=== PATIENT | female | born 1980 | race Caucasian/White ===

== ENCOUNTER → 2020-03-12 | Outpatient (CLI) | payer OTHER ==
[~2020-03-12] MED LIST: FERR325T18 PO; IBUP-1773 PO; PNV91TAB3 PO
--- NOTE | 2020-03-12 16:57 | Diagnostic Imaging Report ---
INDICATION: Assessment during normal . TECHNIQUE: Multiple real-time grayscale images were obtained over the gravid uterus. COMPARISON: None. FINDINGS: Single viable intrauterine is currently in a variable presentation. The fetus was initially in a breech presentation but moved into a cephalic presentation during imaging. There is a normal amount of amniotic fluid, index 14.25 cm. There is what appears to be a septation within the amnion. Placenta is posterior and without previa. Visualized anatomical structures including kidneys, bladder, stomach, intracranial structures, four-chamber heart, three-vessel cord and insertion site, as well as spine are unremarkable. Biometrical measurements are as follows: Biparietal 5.58 cm, age 23 weeks 1 days. Head circumference 20.36 cm, age 22 weeks 4 days. Abdominal circumference 16.28 cm, age 21 weeks 3 days. Femur length 3.55 cm, age 21 weeks 2 days. Sonographic estimate age: 22 weeks 1 days. Sonographic estimated date of delivery: 07/15/2020. Estimated Weight: 427 gm (+/- 62 gm). LMP percentile: 32%. heart rate: 144 beats per minute. number: 1 of 1. IMPRESSION: 1. Single viable intrauterine , currently in a variable presentation. There was noted change in orientation during the examination. 2. Sonographic estimated age at 22 weeks 1 day for an estimated date of delivery of July 15, 2020. 3. There is noted presence of a septation within the amnion. Dictated by: Dictated on workstation # [id number]
== END ==
LOC: RAD 14:38
PROVIDERS: ATTEND Obstetrics & Gynecology
DX: Z34.92 Encounter for supervision of normal pregnancy, unspecified, second trimester (principal); Z3A.22 22 weeks gestation of pregnancy
CPT/HCPCS: 76805

== ENCOUNTER 2020-05-06 20:42 | Emergency (ER) | payer OTHER ==
[~2020-05-06] VITALS: Ht 152 cm; Wt 64.0 kg
[2020-05-06] MEDS ORDERED: NS IV 1000 ML 1,000 ML ONE (20:51)
[2020-05-06] MEDS ORDERED: NS IV 1000 ML 1,000 ML IV SCH ×2 (20:53→22:12)
--- NOTE | 2020-05-06 21:08 | NUR ---
Pt. here with c/o sudden onset of sore throat, feeling of heart burn, and pain in her chest that settled into her right upper back. Pt states that she has had this pain previously when she had pneumonia. Pt was seen in her OB office today and received a flu shot. Pt is 29 wks with her 6th . She is 6, para 4. Pt has had an uneventful thus far. Pt noted to have rapid HR sinus in nature. IV and labs started. ECG obtained. Swabs obtained and sent.
[2020-05-06 21:22] LABS: BASOPHILS % (AUTO) 0 % (0-10); EOSINOPHILS # (AUTO) 0.1 10^3/uL (0.0-0.3); EOSINOPHILS % (AUTO) 0 % (0-10); HEMATOCRIT 32 % (35-52); HEMOGLOBIN 10.6 g/dL (11.5-16.0); LYMPHOCYTES # (AUTO) 1.2 10^3/uL (1.0-4.0); LYMPHOCYTES % (AUTO) 9 % (12-44); MEAN CORPUSCULAR HEMOGLOBIN 29 pg (25-34); MEAN CORPUSCULAR HGB CONC 34 g/dL (32-36); MEAN CORPUSCULAR VOLUME 87 fL (80-99); MEAN PLATELET VOLUME 9.5 fL (9.0-12.2); MONOCYTES # (AUTO) 0.3 10^3/uL (0.0-1.0); MONOCYTES % (AUTO) 2 % (0-12); NEUTROPHILS # (AUTO) 11.9 10^3/uL (1.8-7.8); NEUTROPHILS % (AUTO) 88 % (42-75); PLATELET COUNT 246 10^3/uL (130-400); WHITE BLOOD COUNT 13.5 10^3/uL (4.3-11.0)
--- NOTE | 2020-05-06 21:26 | ED Respiratory ---
General Chief Complaint: Respiratory Problems Stated Complaint: SOA/SORE THROAT/CHEST TIGHTNESS Nursing Triage Note: PT REPORTS THAT IT STARTED A SORE THROAT AND THEN HAD ONSET OF HEARTBURN AND THEN IT SETTLED IN HER CHEST WITH RADIATION INTO HER BACK AND ONSET OF SHOB. Source: patient History of Present Illness Date Seen by Provider: May 06, 2020 Time Seen by Provider: 20:46 Initial Comments PT ARRIVES VIA POV FROM HOME STATES SHE BEGAN FEELING ILL AT 1730 THIS EVENING C/O SORE THROAT, THEN MOVED INTO CHEST--THOUGHT IT WAS HEARTBURN THEN BEGAN HAVING PAIN ALL ACROSS CHEST AND INTO HER RIGHT FLANK AND POSTERIOR CHEST AREA C/O BEING SHORT OF BREATH C/O NON-PRODUCTIVE COUGH C/O SUBJECTIVE FEVER NO LEG SWELLING, BUT HAD A CRAMP IN LEFT CALF FOR MOST OF THE DAY ON Sunday05/02/20 BUT NONE SINCE THEN NO NAUSEA/VOMITING/DIARRHEA OR ABDOMINAL PAIN NO LOSS OF TASTE OR SMELL NO URINARY SYMPTOMS PT HAS BEEN EATING AND DRINKING NORMALLY NO HEADACHE OR BODY ACHES PT STATES SHE HAS HAD PNEUMONIA TWICE IN THE PAST, AND THIS FEELS THE SAME--LAST TIME WAS 8 YEARS AGO OTHERWISE NO CHRONIC RESPIRATORY ILLNESS NO MAJOR MEDICAL PROBLEMS OR OTHER CHRONIC ILLNESSES PT HAS NEVER SMOKED AND NO SECOND HAND SMOKE PT IS 29 WEEKS WITH EDC 07/18/20 NO COMPLICATIONS WITH THIS --PT IS G6 04 AB 1--WITH X 1 AND MISCARRIAGE WITH D%C X 1 PT HAD ROUTINE APPOINTMENT WITH DR. 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 PCP: GURPREET SIMEON DIRECTOR CREDIT RISK: DR. WHITAKER Allergies and Home Medications Allergies Coded Allergies: cefaclor (Verified Allergy, Unknown, 03/01/16) Home Medications Amoxicillin/Potassium Clav 1 Each Tablet, 1 EACH PO BID Prescribed by: JESSICA GOODWIN on 05/06/202225 Azithromycin 500 Mg Tablet, 500 MG PO DAILY Prescribed by: JESSICA GOODWIN on 05/06/202225 Ferrous Sulfate 325 Mg Tablet, 325 MG PO DAILY Prescribed by: ELO WHITAKER on 07/13/191848 Ibuprofen 600 Mg Tablet, 600 MG PO Q6H Prescribed by: ELO WHITAKER on 07/13/191848 L. Acidophilus/Pectin, Esmeralda 1 Each Capsule, 2 EACH PO QID Prescribed by: JESSICA GOODWIN on 05/06/202225 Pnv95/Ferrous Fumarate/FA 1 Each Tablet, 1 EACH PO DAILY, (Reported) Patient Home Medication List Home Medication List Reviewed: Yes Review of Systems Review of Systems Constitutional: see HPI, fever, malaise EENTM: throat pain; No nose congestion Respiratory: see HPI, cough, short of breath Cardiovascular: see HPI, chest pain; No edema, No palpitations, No syncope, No vascular heart diseas Gastrointestinal: no symptoms reported; No abdominal pain, No diarrhea, No loss of appetite, No nausea, No vomiting Genitourinary: no symptoms reported Expected Date of Delivery: Jul 18, 2020 Musculoskeletal: see HPI, back pain Skin: no symptoms reported Psychiatric/Neurological: No Symptoms Reported; Denies Headache Hematologic/Lymphatic: No Symptoms Reported Immunological/Allergic: no symptoms reported Past Ocwxdew-Khnycr-Ixuxaz Hx Past Med/Social Hx: Reviewed and Corrections made Patient Social History Alcohol Use: Denies Use Recreational Drug Use: No Smoking Status: Never a Smoker Recent Foreign Travel: No Contact w/Someone Who Travel: No Recent Infectious Disease Expo: No Recent Hopitalizations: No Seasonal Allergies Seasonal Allergies: No Past Medical History Surgeries: Yes (CLEFT LIP AND PALATE REPAIR X 12 SURGERIES; D&C ; X 1) Section Respiratory: Yes Pneumonia Currently Using CPAP: No Currently Using BIPAP: No 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) Valvular Heart Disease Neurological: No : Yes Expected Date of Delivery: Jul 18, 2020 Hx : 6 Hx Para: 4 Hx Total # of Abortions (Sp): 1 Reproductive Disorders: No Female Reproductive Disorders: Denies Genitourinary: No Gastrointestinal: No Musculoskeletal: No Endocrine: No HEENT: Yes (CLEFT LIP AND PALATE REPAIR X 12 SURGERIES) Cancer: No Psychosocial: No Integumentary: No Blood Disorders: No Physical Exam Vital Signs - First Documented 05/06/20 05/06/20 20:51 21:43 Temp 37.4 Pulse 141 Resp 32 B/P (MAP) 141/74 (96) Pulse Ox 96 O2 Delivery Room Air O2 Flow Rate 98.00 Capillary Refill : Less Than 3 Seconds Height: 5'2.00" Weight: 133lbs. 0.0oz. 60.183352sb; 27.00 BMI Method: General Appearance: WD/WN, other (LOOKS MILDLY ILL, MILDLY DYSPNEIC, BUT ABLE TO TALK IN FULL SENTENCES) HEENT: PERRL/EOMI, normal ENT inspection, TMs normal, pharynx normal, other (POST SURGICAL CHANGES OF CLEFT LIP/PALATE REPAIR) Neck: non-tender, full range of motion, supple, normal inspection Respiratory: normal breath sounds, no accessory muscle use, other (MILDLY DYSPNEIC AND TACHYPNEIC) Cardiovascular: no edema, no gallop, no JVD, no murmur, tachycardia (140'S) Gastrointestinal: normal bowel sounds, non tender, other (GRAVID UTERUS C/W 29 WEEK GESTATION) Extremities: normal range of motion, non-tender, normal inspection, no pedal edema, no calf tenderness, normal capillary refill Neurologic/Psychiatric: circulation tender II-XII nml as tested, no motor/sensory deficits, alert, normal mood/affect, oriented x 3 Skin: normal color, warm/dry Focused Exam Lactate Level 05/06/20 21:05: Lactic Acid Level 1.36 Lactic Acid Level Laboratory Tests Test 05/06/20 21:05 Lactic Acid Level 1.36 MMOL/L (0.50-2.00) Progress/Results/Core Measures Suspected Sepsis Recent Fever Within 48 Hours: No Infection Criteria Present: None New/Unexplained Altered Menta: No Sepsis Screen: No Definite Risk SIRS Temperature: Pulse: 141 Respiratory Rate: 32 Laboratory Tests 05/06/20 21:05: White Blood Count 13.5H Blood Pressure 141 /74 Mean: 96 05/06/20 21:05: Lactic Acid Level 1.36 Laboratory Tests 05/06/20 21:05: Creatinine 0.59L, INR Comment 1.0, Platelet Count 246, Total Bilirubin 0.2 Results/Orders Lab Results Laboratory Tests Test 05/06/20 21:05 05/06/20 21:10 05/06/20 21:20 Range/Units White Blood Count 13.5 H 4.3-11.0 10^3/uL Red Blood Count 3.61 L 3.80-5.11 10^6/uL Hemoglobin 10.6 L 11.5-16.0 g/dL Hematocrit 32 L 35-52 % Mean Corpuscular Volume 87 80-99 fL Mean Corpuscular Hemoglobin 29 25-34 pg Mean Corpuscular Hemoglobin Concent 34 32-36 g/dL Red Cell Distribution Width 13.5 10.0-14.5 % Platelet Count 246 130-400 10^3/uL Mean Platelet Volume 9.5 9.0-12.2 fL Immature Granulocyte % (Auto) 0 % Neutrophils (%) (Auto) 88 H 42-75 % Lymphocytes (%) (Auto) 9 L 12-44 % Monocytes (%) (Auto) 2 0-12 % Eosinophils (%) (Auto) 0 0-10 % Basophils (%) (Auto) 0 0-10 % Neutrophils # (Auto) 11.9 H 1.8-7.8 10^3/uL Lymphocytes # (Auto) 1.2 1.0-4.0 10^3/uL Monocytes # (Auto) 0.3 0.0-1.0 10^3/uL Eosinophils # (Auto) 0.1 0.0-0.3 10^3/uL Basophils # (Auto) 0.0 0.0-0.1 10^3/uL Immature Granulocyte # (Auto) 0.1 0.0-0.1 10^3/uL Neutrophils % (Manual) 91 % Lymphocytes % (Manual) 5 % Monocytes % (Manual) 1 % Eosinophils % (Manual) 1 % Basophils % (Manual) 0 % Band Neutrophils 2 % Anisocytosis SLIGHT Erythrocyte Sedimentation Rate 30 H 0-20 MM/HR Prothrombin Time 13.4 12.2-14.7 SEC INR Comment 1.0 0.8-1.4 Activated Partial Thromboplast Time 24 24-35 SEC D-Dimer 3.58 H 0.00-0.49 UG/ML Sodium Level 137 135-145 MMOL/L Potassium Level 2.9 L 3.6-5.0 MMOL/L Chloride Level 106 98-107 MMOL/L Carbon Dioxide Level 20 L 21-32 MMOL/L Anion Gap 11 5-14 MMOL/L Blood Urea Nitrogen 5 L 7-18 MG/DL Creatinine 0.59 L 0.60-1.30 MG/DL Estimat Glomerular Filtration Rate > 60 BUN/Creatinine Ratio 8 Glucose Level 109 H 70-105 MG/DL Lactic Acid Level 1.36 0.50-2.00 MMOL/L Calcium Level 8.6 8.5-10.1 MG/DL Corrected Calcium 9.2 8.5-10.1 MG/DL Magnesium Level 1.5 L 1.6-2.4 MG/DL Total Bilirubin 0.2 0.1-1.0 MG/DL Aspartate Amino Transf (AST/SGOT) 14 5-34 U/L Alanine Aminotransferase (ALT/SGPT) 17 0-55 U/L Alkaline Phosphatase 73 40-136 U/L Lactate Dehydrogenase 177 125-220 U/L Total Creatine Kinase 55 29-168 U/L Creatine Kinase MB 1.0 <6.6 NG/ML Myoglobin 13.8 10.0-92.0 NG/ML Troponin I < 0.028 <0.028 NG/ML C-Reactive Protein High Sensitivity 0.82 H 0.00-0.50 MG/DL B-Type Natriuretic Peptide 11.4 <100.0 PG/ML Total Protein 6.6 6.4-8.2 GM/DL Albumin 3.2 3.2-4.5 GM/DL Procalcitonin 0.04 <0.10 NG/ML Coronavirus 2019 (ADRY) Negative Negative Monoscreen NEGATIVE NEGATIVE Group A Streptococcus Screen NEGATIVE NEGATIVE Urine Color YELLOW Urine Clarity CLOUDY H Urine pH 7.0 5-9 Urine Specific Brandon 1.015 L 1.016-1.022 Urine Protein NEGATIVE NEGATIVE Urine Glucose (UA) TRACE H NEGATIVE Urine Ketones NEGATIVE NEGATIVE Urine Nitrite NEGATIVE NEGATIVE Urine Bilirubin NEGATIVE NEGATIVE Urine Urobilinogen 0.2 < = 1.0 MG/DL Urine Leukocyte Esterase 2+ H NEGATIVE Urine RBC (Auto) NEGATIVE NEGATIVE Urine RBC NONE /HPF Urine WBC 25-50 H /HPF Urine Squamous Epithelial Cells 25-50 H /HPF Urine Crystals PRESENT H /LPF Urine Amorphous Sediment FEW MIGDALIA PHOSPHATE H /LPF Urine Bacteria MODERATE H /HPF Urine Casts NONE /LPF Urine Mucus SMALL H /LPF Urine Culture Indicated YES Micro Results Microbiology 05/06/20 Influenza Types A,B Antigen (JIMMY) - Final, Complete My Orders Orders - JESSICA GOODWIN DO Ed Iv/Invasive Line Start (05/06/20 20:47) Ekg Tracing (05/06/20 20:47) Monitor-Rhythm Ecg Trace Only (05/06/20 20:47) BNP (05/06/20 20:47) Cbc With Automated Diff (05/06/20 20:47) Comprehensive Metabolic Panel (05/06/20 20:47) Lactic Acid Analyzer (05/06/20 20:47) Magnesium (05/06/20 20:47) Procalcitonin (Pct) (05/06/20 20:47) Protime With Inr (05/06/20 20:47) Partial Thromboplastin Time (05/06/20 20:47) Ua Culture If Indicated (05/06/20 20:47) Blood Culture (05/06/20 20:47) Influenza A And B Antigens (05/06/20 20:47) Troponin I (05/06/20 20:47) Chest 1 View, Ap/Pa Only (05/06/20 20:47) Hs C Reactive Protein (05/06/20 20:47) Erythrocyte Sedimentation Rate (05/06/20 20:47) LDH (05/06/20 20:47) Covid 19 Inhouse Test (05/06/20 20:47) Monotest (05/06/20 20:50) Rapid Strep A Screen (05/06/20 20:50) Ed Iv/Invasive Line Start (05/06/20 20:53) Ns Iv 1000 Ml (Sodium Chloride 0.9%) (05/06/20 20:53) Heart Tones (05/06/20 20:53) Ns Iv 1000 Ml (Sodium Chloride 0.9%) (05/06/20 20:51) Creatine Kinase (05/06/20 20:57) Creatine Kinase Mb (05/06/20 20:57) Fibrin Degradation Products (05/06/20 20:57) Myoglobin Serum (05/06/20 20:57) Acetaminophen Tablet (Tylenol Tablet) (05/06/20 21:30) Manual Differential (05/06/20 21:05) Urine Culture (05/06/20 21:20) Coronavirus Sars-Cov-2 So 2018 (05/06/20 21:47) Azithromycin Tablet (Zithromax Tablet) (05/06/20 22:15) Amoxicillin/Clavulanate Tablet (Augmenti (05/06/20 22:15) Magnesium Oxide Tablet (Mag Ox Tablet) (05/06/20 22:15) Potassium Chloride (Tablet) (Klor Con Ta (05/06/20 22:15) Ed Iv/Invasive Line Start (05/06/20 22:12) Ns Iv 1000 Ml (Sodium Chloride 0.9%) (05/06/20 22:12) Medications Given in ED Current Medications Medications Dose Ordered Sig/Moon Route Start Time Stop Time Status Last Admin Dose Admin Acetaminophen 1,000 mg ONCE ONCE PO 05/06/20 21:30 05/06/20 21:31 DC 05/06/20 21:25 1,000 MG Azithromycin 500 mg ONCE ONCE PO 05/06/20 22:15 05/06/20 22:16 DC 05/06/20 22:44 500 MG Magnesium Oxide 1,200 mg ONCE ONCE PO 05/06/20 22:15 05/06/20 22:16 DC 05/06/20 22:43 1,200 MG Potassium Chloride 40 meq ONCE ONCE PO 05/06/20 22:15 05/06/20 22:16 DC 05/06/20 22:43 40 MEQ Vital Signs/I&O 05/06/20 05/06/20 05/06/20 05/06/20 20:51 21:43 21:44 23:28 Temp 37.4 37.4 Pulse 141 128 128 119 Resp 32 32 B/P (MAP) 141/74 (96) 125/66 125/66 116/75 Pulse Ox 96 98 98 99 O2 Delivery Room Air Room Air Room Air Room Air O2 Flow Rate 98.00 98.00 05/06/20 23:38 Pulse 118 Resp 18 B/P (MAP) 116/72 Pulse Ox 99 O2 Delivery Room Air 05/07/20 00:00 Intake Total 2000 ml Balance 2000 ml Capillary Refill : Less Than 3 Seconds Blood Pressure Mean: 96 Progress Note : Progress Note FHR 147 O2 SATS IN UPPER 90'S ON ROOM AIR BP NORMAL. ' GIVEN TYLENOL AND IV FLUIDS TEMP DOWN, HEART RATE DOWN UNEVENTFUL ER STAY ECG Initial ECG Impression Date: May 06, 2020 Initial ECG Impression Time: 20:58 Initial ECG Rate: 136 Initial ECG Rhythm: S.Tach Initial ECG Comparisson: No Previous ECG Available Diagnostic Imaging Comments CXR---PER RADIOLOGIST REPORT AT 1 FINDINGS: The lung volumes are normal. Patchy opacities are seen in the bilateral mid and lower lungs.. No large pleural effusion or pneumothorax is seen. The cardiomediastinal silhouette is normal in size and contour. No acute osseous abnormality is seen. IMPRESSION: Patchy bibasilar opacities, which may represent atelectasis, edema or infection. Alternatively, overlapping soft tissues are a possibility, particularly given the patient history of 29 weeks . Lateral radiographs may be of use to further evaluate. Reviewed: Reviewed by Me Departure Communication (Admissions) 2201--DISCUSSED WITH DR. WHITAKER, WILL TREAT WITH ANTIBIOTICS AT THIS TIME. Impression Primary Impression: Person under investigation for COVID-19 Additional Impressions: POSSIBLE PNEMONIA 29 weeks gestation of UTI (urinary tract infection) during Hypokalemia Hypomagnesemia Disposition: HOME, SELF-CARE Condition: Stable Departure-Patient Inst. Referrals: ELO WHITAKER,LOCAL PHYSICIAN (PCP) Primary Care Physician Patient Instructions: Coronavirus Disease 2019 (COVID-19) (DC), Hypokalemia (DC), Low Magnesium Level (DC), Pneumonia, Adult (DC), Urinary Tract Infections in Add. Discharge Instructions: LOTS OF FLUIDS TYLENOL NEEDED FOR PAIN OR FEVER QUARANTINE FOR ALL HOUSEHOLD MEMBERS AND CLOSE CONTACTS UNTIL CLEARED BY OR HEALTH DEPT RETURN TO ER IF SYMPTOMS WORSEN All discharge instructions reviewed with patient and/or family. Voiced understanding. Scripts L. Acidophilus/Pectin, Esmeralda (Acidophilus Capsule) 1 Each Capsule 2 EACH PO QID, #40 CAP Prov: JESSICA GOODWIN DO 05/06/20 Azithromycin (Zithromax) 500 Mg Tablet 500 MG PO DAILY for 5 Days, #5 TAB Prov: JESSICA GOODWIN DO 05/06/20 Amoxicillin/Potassium Clav (Augmentin 875-125 Tablet) 1 Each Tablet 1 EACH PO BID for 10 Days, #20 TAB Prov: JESSICA GOODWIN DO 05/06/20 JESSICA GOODWIN DO May 06, 2020 21:26
[2020-05-06 21:30] LABS: BILIRUBIN,URINE NEGATIVE (NEGATIVE); COLOR,URINE YELLOW; GLUCOSE, URINE (UA) TRACE (NEGATIVE); KETONES,URINE NEGATIVE (NEGATIVE); LEUKOCYTE ESTERASE ,URINE 2+ (NEGATIVE); NITRITE,URINE NEGATIVE (NEGATIVE); PROTEIN,URINE NEGATIVE (NEGATIVE)
[2020-05-06] MEDS ORDERED: ACETAMINOPHEN 500 MG TAB (TYLENOL) PO ONE (21:30)
[2020-05-06 21:36] LABS: FIBRIN DEGRADATION PRODUCTS 3.58 UG/ML (0.00-0.49); PROTHROMBIN TIME PATIENT 13.4 SEC (12.2-14.7)
[2020-05-06 21:37] LABS: CLARITY,URINE CLOUDY
[2020-05-06 21:38] LABS: AMORPHOUS SEDIMENT,UR FEW AMOR PHOSPHATE /LPF; BACTERIA,URINE MODERATE /HPF; SQUAMOUS EPITHELIAL CELL,UR 25-50 /HPF; WBC,URINE 25-50 /HPF
[2020-05-06 21:43] LABS: BAND NEUTROPHILS 2 %; BASOPHILS % (MANUAL) 0 %; EOSINOPHILS % (MANUAL) 1 %; LYMPHOCYTES % (MANUAL) 5 %; MONOCYTES % (MANUAL) 1 %; NEUTROPHILS % (MANUAL) 91 %
[2020-05-06 21:44] LABS: ALANINE AMINOTRANSFERASE 17 U/L (0-55); ALBUMIN 3.2 GM/DL (3.2-4.5); ALKALINE PHOSPHATASE 73 U/L (40-136); ANISOCYTOSIS SLIGHT; BILIRUBIN,TOTAL 0.2 MG/DL (0.1-1.0); BUN/CREATININE RATIO 8; CALCIUM 8.6 MG/DL (8.5-10.1); CARBON DIOXIDE 20 MMOL/L (21-32); CHLORIDE 106 MMOL/L (98-107); CREATINE KINASE 55 U/L (29-168); CREATININE SERUM 0.59 MG/DL (0.60-1.30); ERYTHROCYTE SEDIMENTATION RATE 30 MM/HR (0-20); GFR ESTIMATED > 60; GLUCOSE 109 MG/DL (70-105); MAGNESIUM 1.5 MG/DL (1.6-2.4); POTASSIUM 2.9 MMOL/L (3.6-5.0); SODIUM 137 MMOL/L (135-145); TOTAL PROTEIN 6.6 GM/DL (6.4-8.2)
--- NOTE | 2020-05-06 21:59 | Diagnostic Imaging Report ---
EXAMINATION: Chest 1 view. HISTORY: Chest pain. Dyspnea. 29 weeks . COMPARISON: None available. FINDINGS: The lung volumes are normal. Patchy opacities are seen in the bilateral mid and lower lungs.. No large pleural effusion or pneumothorax is seen. The cardiomediastinal silhouette is normal in size and contour. No acute osseous abnormality is seen. IMPRESSION: Patchy bibasilar opacities, which may represent atelectasis, edema or infection. Alternatively, overlapping soft tissues are a possibility, particularly given the patient history of 29 weeks . Lateral radiographs may be of use to further evaluate. Dictated by: Dictated on workstation # [id number]
--- NOTE | 2020-05-06 22:03 | NUR ---
Patient resting; HR noted to be trending down at 125. Will continue to monitor.
[2020-05-06] MEDS ORDERED: AUGMENTIN 875 MG TAB (AMOXICILLIN/CLAVULANATE) PO SCH (22:15)
[2020-05-06] MEDS ORDERED: MAGNESIUM OXIDE (MAG-OX)400 MG TAB PO ONE (22:15)
[2020-05-06] MEDS ORDERED: AZITHROMYCIN 250 MG TAB (ZITHROMAX) PO ONE (22:15)
[2020-05-06] MEDS ORDERED: KCL 10 MEQ TAB (MICRO K) PO ONE (22:15)
[2020-05-06] MEDS ORDERED: AMOX-358 PO (22:26)
[2020-05-06] MEDS ORDERED: AZIT500T PO (22:26)
[2020-05-06] MEDS ORDERED: L. A1CAP11 PO (22:26)
--- NOTE | 2020-05-06 23:29 | NUR ---
called and updated on status.
[2020-05-06 23:38] VITALS: BP 116/72
--- NOTE | 2020-05-06 23:40 | NUR ---
D/C education provided; pt verbalized an understanding with all questions answered. Pt states she feels much better and will f/u as directed.
== END 2020-05-06 23:41 | disposition home or self-care (01) ==
LOC: EDUNIT# 20:42 → ER 20:44
DX: O23.43 Unspecified infection of urinary tract in pregnancy, third trimester (principal); O99.283 Endocrine, nutritional and metabolic diseases complicating pregnancy, third trimester; E87.6 Hypokalemia; E83.42 Hypomagnesemia; Z3A.29 29 weeks gestation of pregnancy; Z88.1 Allergy status to other antibiotic agents; Z20.828 Contact with and (suspected) exposure to other viral communicable diseases
CPT/HCPCS: 71045; 80053; 81000; 82550; 82553; 83605; 83615; 83735; 83874; 83880; 84145; 84484; 85007; 85027; 85379; 85610; 85652; 85730; 86141; 86308; 87040; 87088; 87430; 87804; 93005; 93041; 99284; U0002; 36415; 87635

== ENCOUNTER → 2022-11-07 | Outpatient (CLI) | payer OTHER ==
[~2022-11-07] MED LIST changes: +ACHD5005 PO; +AMOX-358 PO; +AZIT500T PO; +BENZ78AE5 TP; +DOCU-239 PO; +IBUP-844 PO; +L. A1CAP11 PO
--- NOTE | 2022-11-08 10:46 | Diagnostic Imaging Report ---
3D bilateral screening mammogram with CAD. There are no prior exams available for comparison at this time. There are no current complaints. The fibroglandular tissue in both breasts is heterogeneously dense. This does limit the sensitivity of this exam. There is no primary or secondary sign of malignancy noted. IMPRESSION: 1. There is no evidence of malignancy. 2. The patient should have her annual bilateral screening mammogram on schedule in October 2023. ACR BI-RADS Category 1: Negative. Result letter will be mailed to the patient. Note: At least 10% of breast cancer is not imaged by mammography. Dictated by: Dictated on workstation # [id number]
== END ==
LOC: RAD 09:39
PROVIDERS: ATTEND Nurse Practitioner Women's Health
DX: Z12.31 Encounter for screening mammogram for malignant neoplasm of breast (principal)
CPT/HCPCS: 77063; 77067

== ENCOUNTER → 2022-12-26 | Outpatient (CLI) | payer OTHER ==
--- NOTE | 2022-12-26 18:56 | Diagnostic Imaging Report ---
PROCEDURE: Pelvic comp/transvaginal sonogram. TECHNIQUE: Complete transabdominal and transvaginal pelvic ultrasound was performed. In addition, limited pelvic Doppler was performed. INDICATION: Abnormal uterine bleeding. FINDINGS: Uterus measures 8.3 x 5.4 x 5.0 cm. Uterus is retroverted. Endometrium is 7 mm in thickness. No myometrial mass is identified. Right ovary measures 4.2 x 3.0 x 3.4 cm, and left ovary measures 3.0 x 1.6 x 2.1 cm. Right ovary does contain a septated cyst measuring 2.3 x 2.7 x 2.2 cm. There are multiple additional follicles present bilaterally. Both ovaries demonstrate blood flow. No free fluid is seen. IMPRESSION: 2.7 cm septated right ovarian cyst. The study is otherwise unremarkable. Dictated by: Dictated on workstation # [id number]
== END ==
LOC: RAD 14:04
PROVIDERS: ATTEND Nurse Practitioner Women's Health
DX: N83.201 Unspecified ovarian cyst, right side (principal)
CPT/HCPCS: 76830; 76856